=== PATIENT | male | born 1955 | race Caucasian/White ===

== ENCOUNTER 2023-05-05 15:09 | Outpatient (CLI) | payer OTHER, MEDICAID | END 2023-05-05 15:10 | disposition home or self-care (01) | LOC: CSHULT 15:09 | PROVIDERS: ATTEND Internal Medicine Hematology & Oncology | DX: M79.661 Pain in right lower leg (principal); R91.1 Solitary pulmonary nodule; I72.4 Aneurysm of artery of lower extremity; I74.3 Embolism and thrombosis of arteries of the lower extremities ==